=== PATIENT | female | born 1960 | race Caucasian/White ===

== ENCOUNTER → 2017-07-02 | Outpatient (CLI) | payer OTHER | END | disposition home or self-care (01) | LOC: CFH 12:23 → MERGE 12:30 | PROVIDERS: ATTEND Nurse Practitioner Family | DX: R04.2 Hemoptysis (principal) | CPT/HCPCS: 76536 ==

== ENCOUNTER → 2017-08-28 | Outpatient (CLI) | payer OTHER ==
[~2017-08-28] MED LIST: GADOBUTROL 10 MMOL/10 ML PFS ONE
== END | disposition home or self-care (01) ==
LOC: CFH 07:34 → MERGE 07:45
PROVIDERS: ATTEND Psychiatry & Neurology Neurology
DX: I67.82 Cerebral ischemia (principal); R90.82 White matter disease, unspecified
CPT/HCPCS: 70553; A9585

== ENCOUNTER 2018-01-26 14:14 | Emergency (ER) | payer OTHER ==
[~2018-01-26] VITALS: Ht 165.1 cm; Wt 104.5 kg
[2018-01-26] MEDS ORDERED: ASPIRIN 81 MG TABLET CHEW PO ONE (14:30)
[2018-01-26 15:17] LABS: BASOPHILS # (AUTO) 0.02 x10^3/uL (0-0.1); BASOPHILS % (AUTO) 0 % (0-1); EOSINOPHILS # (AUTO) 0.28 x10^3/uL (0-0.4); EOSINOPHILS % (AUTO) 3 % (1-7); LYMPHOCYTES % (AUTO) 30 % (22-44); MD NO; MEAN CORPUSCULAR HEMOGLOBIN 27.2 pg (27.0-34.8); MEAN CORPUSCULAR HGB CONC 33.5 g/dL (32.4-35.8); MEAN CORPUSCULAR VOLUME 81.1 fL (80-100); MEAN PLATELET VOLUME 8.3 fL (7.4-10.4); MONOCYTES % (AUTO) 7 % (2-9); NEUTROPHILS # (AUTO) 5.96 x10^3/uL (1.8-6.8); NEUTROPHILS % (AUTO) 60 % (42-75); PLATELET COUNT 280 x10^3/uL (130-400); RED BLOOD COUNT 5.18 x10^6/uL (3.82-5.3); RED CELL DISTRIBUTION WIDTH 14.3 % (9.6-15.2)
[2018-01-26] MEDS ORDERED: ASPIRIN 81 MG TABLET CHEW ONE (15:23)
[2018-01-26 15:29] LABS: ALBUMIN 3.9 g/dL (3.4-5.0); ANION GAP 7 mmol/L (5-15); CHLORIDE 111 mmol/L (98-107)
[2018-01-26 15:35] LABS: ALANINE AMINOTRANSFERASE 25 U/L (12-78); ALKALINE PHOSPHATASE 109 U/L (45-117); BILIRUBIN,TOTAL 0.3 mg/dL (0.2-1.0); CREATININE 1.11 mg/dL (0.55-1.02); TOTAL PROTEIN 7.7 g/dL (6.4-8.2); TROPONIN I < 0.015 ng/mL (0.000-0.045)
[2018-01-26 17:13] VITALS: BP 150/75
== END 2018-01-26 17:36 | disposition home or self-care (01) ==
LOC: ED 16:47
DX: I16.9 Hypertensive crisis, unspecified (principal); I10 Essential (primary) hypertension; R07.89 Other chest pain; G43.909 Migraine, unspecified, not intractable, without status migrainosus; E78.5 Hyperlipidemia, unspecified
CPT/HCPCS: 36415; 71045; 80053; 84484; 85025; 93005; 99285

== ENCOUNTER → 2018-04-19 | Outpatient (CLI) | payer OTHER | END | disposition home or self-care (01) | LOC: CFH 08:45 → MERGE 09:00 | PROVIDERS: ATTEND Internal Medicine Cardiovascular Disease | DX: I34.1 Nonrheumatic mitral (valve) prolapse (principal); I10 Essential (primary) hypertension; E78.5 Hyperlipidemia, unspecified | CPT/HCPCS: 93306 ==

== ENCOUNTER → 2019-01-28 | Outpatient (CLI) | payer OTHER | END | disposition home or self-care (01) | LOC: EDSEX → MERGE 09:00 → CVU 09:01 | PROVIDERS: ATTEND Internal Medicine Cardiovascular Disease | DX: R42 Dizziness and giddiness (principal); I10 Essential (primary) hypertension; E78.5 Hyperlipidemia, unspecified; Z87.891 Personal history of nicotine dependence | CPT/HCPCS: 93880 ==

== ENCOUNTER 2019-11-09 12:46 | Emergency (ER) | payer OTHER ==
[~2019-11-09] VITALS: Ht 165.1 cm; Wt 103.0 kg
[2019-11-09 13:24] LABS: BASOPHILS # (AUTO) 0.05 x10^3/uL (0-0.1); BASOPHILS % (AUTO) 1 % (0-1); EOSINOPHILS # (AUTO) 0.15 x10^3/uL (0-0.4); EOSINOPHILS % (AUTO) 2 % (1-7); LYMPHOCYTES # (AUTO) 2.67 x10^3/uL (1-3.4); LYMPHOCYTES % (AUTO) 30 % (22-44); MD NO; MEAN CORPUSCULAR HEMOGLOBIN 28.3 pg (27.0-34.8); MEAN CORPUSCULAR HGB CONC 33.8 g/dL (32.4-35.8); MEAN CORPUSCULAR VOLUME 83.8 fL (80-100); MONOCYTES # (AUTO) 0.65 x10^3/uL (0.2-0.8); MONOCYTES % (AUTO) 7 % (2-9); NEUTROPHILS # (AUTO) 5.45 x10^3/uL (1.8-6.8); NEUTROPHILS % (AUTO) 61 % (42-75); PLATELET COUNT 277 x10^3/uL (130-400); RED BLOOD COUNT 4.97 x10^6/uL (3.82-5.3); RED CELL DISTRIBUTION WIDTH 13.4 % (9.6-15.2)
[2019-11-09 13:36] LABS: ALBUMIN 3.9 g/dL (3.4-5.0); ANION GAP 7 mmol/L (5-15); CALCIUM 9.2 mg/dL (8.5-10.1); CHLORIDE 107 mmol/L (98-107)
[2019-11-09 13:42] LABS: CREATININE 1.06 mg/dL (0.55-1.02); TROPONIN I < 0.015 ng/mL (0.000-0.045)
--- NOTE | 2019-11-09 14:29 | NUR ---
PT A&OX4, RESP EVEN & UNLABORED, SPEECH CLEAR. REPORTS LAST FEW DAYS: CP, SOB, LIGHTHEADED, DIZZY W/ EXERTION; RODGERS; LOW ENERGY. TODAY HOME BP 122/60, HR 60. CONTACTED IN HOME TUTOR; HAS APPT TOMORROW. DENIES CP CURRENTLY, RECENT URI. MINOR LIGHTHEADEDNESS CURRENTLY. TOOK USUAL MEDS TODAY. NO PAIN MEDS TAKEN TODAY. LAST ORAL INTAKE: FOOD AT 1030.
[2019-11-09] MEDS ORDERED: POTA20TA89 PO (15:35)
[2019-11-09] MEDS ORDERED: EZET10TA70 PO (15:35)
[2019-11-09] MEDS ORDERED: TOPI50TA8 PO (15:35)
[2019-11-09] MEDS ORDERED: HYDR50TA3 PO (15:35)
[2019-11-09] MEDS ORDERED: LOSA50TA14 PO (15:35)
[2019-11-09] MEDS ORDERED: PROP40TA PO (15:35)
[2019-11-09] MEDS ORDERED: ROSU20TA2 PO (15:37)
[2019-11-09 16:12] VITALS: BP 109/58
== END 2019-11-09 16:23 | disposition home or self-care (01) ==
LOC: ED 16:00
DX: R42 Dizziness and giddiness (principal); E78.5 Hyperlipidemia, unspecified; I10 Essential (primary) hypertension; Z90.89 Acquired absence of other organs; Z90.49 Acquired absence of other specified parts of digestive tract; Z90.710 Acquired absence of both cervix and uterus
CPT/HCPCS: 36415; 71046; 80048; 82040; 83880; 84484; 85025; 93005; 99284

== ENCOUNTER → 2019-11-25 | Outpatient (CLI) | payer OTHER ==
[~2019-11-25] MED LIST changes: +EZET10TA70 PO; -GADOBUTROL 10 MMOL/10 ML PFS ONE; +HYDR50TA3 PO; +LOSA50TA14 PO; +POTA20TA89 PO; +PROP40TA PO; +ROSU20TA2 PO; +TOPI50TA8 PO
== END | disposition home or self-care (01) ==
LOC: CFH 06:49
PROVIDERS: ATTEND Internal Medicine Cardiovascular Disease
DX: I10 Essential (primary) hypertension (principal); R07.9 Chest pain, unspecified; R42 Dizziness and giddiness
CPT/HCPCS: 78452; 93017; 93306; A9502